=== PATIENT | male | born 1995 | race Caucasian/White ===

== ENCOUNTER 2021-01-16 13:51 | Outpatient (CLI) | payer OTHER, SELFPAY ==
--- NOTE | 2021-01-16 11:15 | DI.RAD_ITS ---
EXAM: XR KNEE RT 3V AP,LAT,IWLLY CLINICAL HISTORY: f/u. TECHNIQUE: 2D digital imaging was performed. COMPARISON: No exams were available for comparison FINDINGS: BONES: No acute fracture is present. No bony destructive lesion is seen. JOINTS: The knee is normally aligned. There is a moderate joint effusion. SOFT TISSUE: Normal. IMPRESSION: Moderate joint effusion. If there is concern internal derangement, an MRI should be considered for f urther evaluation. DATA REPOSITORY: RADIATION DOSE DELIVERED:
== END 2021-01-16 13:52 | disposition home or self-care (01) ==
LOC: DIORS 13:52
PROVIDERS: PCP Family Medicine; Visit Provider Student in an Organized Health Care Education/Training Program
DX: M25.461 Effusion, right knee (principal)
CPT/HCPCS: 73562